=== PATIENT | male | born 1995 | race Two or more races ===

== ENCOUNTER 2022-10-15 20:19 | Emergency (ER) | payer SELFPAY ==
[~2022-10-15] VITALS: Ht 152.4 cm; Wt 62.8 kg
[2022-10-15] MEDS ORDERED: KETOROLAC TROMETH 60MG/2ML VIAL IM ONE (21:00)
[2022-10-15] MEDS ORDERED: HYDROcodone-ACET 10/325MG TAB PO ONE (21:00)
[2022-10-15 21:27] LABS: Urine Bacteria NONE SEEN /hpf (None Seen); Urine Blood TRACE /uL (Negative); Urine Mucus FEW (None Seen); Urine Specific Gravity 1.026 (1.001-1.035); Urine WBC 1 /hpf (0 - 3)
[2022-10-15] MEDS ORDERED: HYDR-4902 PO (23:07)
[2022-10-15] MEDS ORDERED: IBUP800T26 PO (23:07)
[2022-10-16 03:21] VITALS: BP 127/70
== END 2022-10-16 03:46 | disposition home or self-care (01) ==
LOC: ER 20:19
DX: N20.0 Calculus of kidney (principal)
CPT/HCPCS: 76775; 81001